=== PATIENT | female | born 1985 | race Asian ===

== ENCOUNTER 2018-10-20 11:38 | Emergency (ER) | payer OTHER ==
[~2018-10-20] VITALS: Ht 144.8 cm; Wt 45.3 kg
[2018-10-20 11:40] VITALS: BP 113/61; PULSE 80; RESP 22; Ht 144.8 cm; Wt 45.3 kg
--- NOTE | 2018-10-20 13:36 | ERD ---
ER Documentation Chief Complaint Chief Complaint vaginal bleeding started on the 23 of september - LMP - 08/22/18 HPI Patient is a 33-year-old female, no past medical history, presents to the ER for concerns of vaginal bleeding. Patient is G4, P0, AB 3. Patient states [facility] and she is to was told that her urine test was positive that she presents to the ER to determine how far along she is. Patient states her last menstrual period was on 08-22-18. Patient states she is have been having vaginal bleeding since September 23. At this time patient states she only is having spotting, she uses 1 pad per day. Patient denies any blood clot passage. Patient denies any fevers, chills, nausea, vomiting, lower abdominal pain, dizziness, lightheadedness. ROS All systems reviewed and are negative except as per history of present illness. PMhx/Soc Medical and Surgical Hx: pt denies Medical Hx, pt denies Surgical Hx Hx Alcohol Use: No Hx Substance Use: No Hx Tobacco Use: No FmHx Family History: No diabetes Physical Exam Vitals Vital Signs Date Temp Pulse Resp B/P (MAP) Pulse Ox O2 O2 Flow FiO2 Time Delivery Rate 10/20/18 98.2 80 22 113/61 100 11:40 (78) Physical Exam Const: No acute distress Head: Atraumatic Eyes: Normal Conjunctiva ENT: Normal External Ears, Nose and Mouth. Neck: Full range of motion. No meningismus. Resp: Clear to auscultation bilaterally Cardio: Regular rate and rhythm, no murmurs Abd: Soft, non tender, non distended. Normal bowel sounds Skin: No petechiae or rashes Back: No midline or flank tenderness Ext: No cyanosis, or edema Neur: Awake and alert Psych: Normal Mood and Affect Result Diagram: 10/20/18 1221 Results 24 hrs Laboratory Tests Test 10/20/18 12:21 10/20/18 12:24 White Blood Count 7.6 10^3/ul Red Blood Count 4.47 10^6/ul Hemoglobin 12.4 g/dl Hematocrit 39.7 % Mean Corpuscular Volume 88.8 fl Mean Corpuscular Hemoglobin 27.7 pg Mean Corpuscular Hemoglobin Concent 31.2 g/dl Red Cell Distribution Width 14.0 % Platelet Count 250 10^3/UL Mean Platelet Volume 9.8 fl Immature Granulocytes % 0.100 % Neutrophils % 65.3 % Lymphocytes % 27.7 % Monocytes % 5.3 % Eosinophils % 0.9 % Basophils % 0.7 % Nucleated Red Blood Cells % 0.0 /100WBC Immature Granulocytes # 0.010 10^3/ul Neutrophils # 5.0 10^3/ul Lymphocytes # 2.1 10^3/ul Monocytes # 0.4 10^3/ul Eosinophils # 0.1 10^3/ul Basophils # 0.1 10^3/ul Nucleated Red Blood Cells # 0.0 10^3/ul Urine Color YELLOW Urine Clarity SLIGHTLY CLOUDY Urine pH 8.0 Urine Specific Devine 1.014 Urine Ketones NEGATIVE mg/dL Urine Nitrite NEGATIVE mg/dL Urine Bilirubin NEGATIVE mg/dL Urine Urobilinogen NEGATIVE mg/dL Urine Leukocyte Esterase NEGATIVE Toño/ul Urine Microscopic RBC 1 /HPF Urine Microscopic WBC 1 /HPF Urine Squamous Epithelial Cells FEW /HPF Urine Hemoglobin NEGATIVE mg/dL Urine Glucose NEGATIVE mg/dL Urine Total Protein NEGATIVE mg/dl Beta HCG, Quantitative 9.6 mIU/ml POC Beta HCG, Qualitative NEGATIVE Procedures/MDM ED COURSE: The patient was stable throughout ED course. I kept the patient and/or family informed of laboratory and diagnostic imaging results throughout the ED course. DIAGNOSTIC IMAGING: Read by radiologist. Patient: GRACE HICKEY : 1985 Age: 33 Sex: F MR #: [id number] DOS: 10/20/18 1204 Ordering MD: JOBY WATKINS PA-C Location: [facility] Room/Bed: PROCEDURE: US Pelvis. CLINICAL INDICATION: vaginal bleeding TECHNIQUE: Multiple sonographic images of the pelvis were obtained utilizing a transabdominal and endovaginal technique. The images were reviewed on a PACS workstation. COMPARISON: None. FINDINGS: The uterus is normal in size and demonstrates a normal appearance of the myometrium. The uterus measures 8.5 x 4.1 x 4.0 cm in size. The endometrial stripe is heterogeneous in appearance and has the thickness of 19 mm. There is a small amount of fluid in the lower endocervical canal. No intrauterine gestation is noted. The ovaries are normal in size and echogenicity. Normal Doppler flow is identified in both ovaries. The right ovary measures 3.2 x 1.3 x 1.4 cm. The left ovary measures 2.8 x 1.7 x 2.3 cm. There is a 1.9 cm simple cyst in the left ovary. No free fluid is present within the pelvis.. RPTAT: AA IMPRESSION: No intrauterine gestation visualized. Small amount of fluid in the lower endocervical canal. Thickened endometrium. Simple cyst in the left ovary. Differential diagnosis includes early , missed or ectopic . Follow-up ultrasound and HCG levels is recommended. .Gerardo Whitehead MD, MD Date Time Electronically viewed and signed by .Gerardo Whitehead MD, MD on 10/20/2018 13:19 .S/ CC: JOBY WATKINS PA-C [id number]. MEDICAL DECISION MAKING: This is a 33-year-old female, G4, P0, AB 3, presents to the ER for concerns of vaginal spotting since September 23. Vital signs were reviewed. Patient was afebrile. Patient was hemodynamically stable. Urine test was positive. Quantitative b-HCG was 9.6. Patient's blood type was noted to be O+, no indication for RhoGam at this time. CBC showed no evidence of systemic infection or severe anemia. Pelvic US showed No intrauterine gestation visualized. Small amount of fluid in the lower endocervical canal. Thickened endometrium. Simple cyst in the left ovary. Differential diagnosis includes early , missed or ectopic . At this time for the patient presentation is most consistent with vaginal bleeding in the setting of . Given that patient has had bleeding for the last month, patient likely is having a miscarriage. Patient encouraged to follow-up with [facility] and repeat blood work and ultrasound in the next 2 to 3 days. Low suspicion for ectopic , ruptured ectopic , molar , subchorionic hematoma, spontaneous , incomplete , complete , missed , placental abruption, placental previa, vasa previa, uterine rupture, anembyronic . DISCHARGE: At this time, patient is stable for discharge and outpatient management. I had a conversation at length with the patient about the concerns of vaginal bleeding during the 1st trimester of . Patient and/or family understands that her vaginal bleeding can be a normal finding or a sign of miscarriage. I have instructed the patient to follow-up with her OBGYN in 1-2 days for further monitoring including a repeat b-HCG level. I have instructed the patient to promptly return to the ER at any time for any new or worsening symptoms including increased pain, nausea, vomiting, continued bleeding, weakness, syncope or fever. The patient and/or family expressed understanding of and agreement with this plan. All questions were answered. Home care instructions were provided. Disclaimer: Inadvertent spelling and grammatical errors are likely due to EHR/dictation software use and do not reflect on the overall quality of patient care. Also, please note that the electronic time recorded on this note does not necessarily reflect the actual time of the patient encounter. Departure Diagnosis: Primary Impression: Vaginal bleeding in patient at less than 20 weeks ges... Condition: Fair Patient Instructions: Bleeding During Early Referrals: [facility] YOU HAVE RECEIVED A MEDICAL SCREENING EXAM AND THE RESULTS INDICATE THAT YOU DO NOT HAVE A CONDITION THAT REQUIRES URGENT TREATMENT IN THE EMERGENCY DEPARTMENT. FURTHER EVALUATION AND TREATMENT OF YOUR CONDITION CAN WAIT UNTIL YOU ARE SEEN IN YOUR DOCTORS OFFICE WITHIN THE NEXT 1-2 DAYS. IT IS YOUR RESPONSIBILITY TO MAKE AN APPOINTMENT FOR FOLOW-UP CARE. IF YOU HAVE A PRIMARY DOCTOR --you should call your primary doctor and schedule an appointment IF YOU DO NOT HAVE A PRIMARY DOCTOR YOU CAN CALL OUR PHYSICIAN REFERRAL HOTLINE AT IF YOU CAN NOT AFFORD TO SEE A PHYSICIAN YOU CAN CHOSE FROM THE FOLLOWING [facility] [address] [facility] [address] [facility] [facility] [address] [facility] [address] [facility] [address] [facility]. [facility]. [address] [facility] [facility] YOU HAVE RECEIVED A MEDICAL SCREENING EXAM AND THE RESULTS INDICATE THAT YOU DO NOT HAVE A CONDITION THAT REQUIRES URGENT TREATMENT IN THE EMERGENCY DEPARTMENT. FURTHER EVALUATION AND TREATMENT OF YOUR CONDITION CAN WAIT UNTIL YOU ARE SEEN IN YOUR DOCTORS OFFICE WITHIN THE NEXT 1-2 DAYS. IT IS YOUR RESPONSIBILITY TO MAKE AN APPOINTMENT FOR FOLOW-UP CARE. IF YOU HAVE A PRIMARY DOCTOR --you should call your primary doctor and schedule and appointment IF YOU DO NOT HAVE A PRIMARY DOCTOR YOU CAN CALL OUR PHYSICIAN REFERRAL HOTLINE AT . IF YOU CAN NOT AFFORD TO SEE A PHYSICIAN YOU CAN CHOSE FROM THE FOLLOWING [facility] INSTITUTIONS: [facility] [address] [place] [address] [facility] [address] [place] [address] [facility] [address] [place] [address] [facility] [place] [address] [facility] [address] [place] [address] OFFICE FAX SHIRA GARBER [address] [place] [address] [address] [place] [address] [place] [address] [address] [address] [address] [facility], [address] [address] [address] [address] [place] [address] [facility] [address] [place] [address] [address] [facility] [address] [address] [facility] [address], [facility] [address] [address] [address] [facility] [address], [facility] [address] [address] [address] [place] [address] Additional Instructions: Call your primary care doctor TOMORROW for an appointment during the next 1-2 days.See the doctor sooner or return here if your condition worsens before your appointment time. JOBY WATKINS PA-C Oct 20, 2018 13:35
== END 2018-10-20 13:48 | disposition home or self-care (01) ==
LOC: FTE 11:38
DX: O20.9 Hemorrhage in early pregnancy, unspecified (principal); Z3A.00 Weeks of gestation of pregnancy not specified
CPT/HCPCS: 76801; 76817; 81001; 81025; 84702; 85025; 86900; 86901; Z7502; 81003

== ENCOUNTER 2018-12-09 08:43 | Emergency (ER) | payer OTHER ==
[~2018-12-09] VITALS: Ht 152.4 cm; Wt 44.3 kg
[~2018-12-09 08:43] MED LIST: ELIM TOP
[2018-12-09 09:01] VITALS: BP 125/80; PULSE 111; RESP 16; Ht 152.4 cm; Wt 44.3 kg
== END 2018-12-09 10:08 | disposition home or self-care (01) ==
LOC: FTE 08:43
DX: B86 Scabies (principal)
CPT/HCPCS: 99282